=== PATIENT | female | born 1970 | race Caucasian/White ===

== ENCOUNTER 2021-08-21 09:26 | Emergency (ER) | payer BC, MEDICAID ==
[2021-08-21] MEDS ORDERED: Sodium Chloride 0.9% 1000 ML 1,000 ML IV STA (09:42)
[2021-08-21] MEDS ORDERED: Sodium Chloride 0.9% 1000 ML 1,000 ML ONE (09:53)
--- NOTE | 2021-08-21 10:11 | ERPHSYRPT ---
- History of Present Illness Time Seen by Provider: 08/21/21 09:40 Source: patient Exam Limitations: no limitations Patient Subjective Stated Complaint: Pt c/o of headache, head congestion, eye redness and swelling and blurred vision, fever, body aches, N&V and diarrhea si nce before Triage Nursing Assessment: Pt brought to the ER by her son, hypertensive, denies pain, eyes swollen and red and keeps them closed, diarrhea this AM but hasn't vomited since last week, pulses normal, no difficulties with strength, doesn't appear to be in any distress Physician History: Patient is a 50-year-old white female who presents with a complaint of being ill since before Monday. She says she has had fever and chills initially she has not been hydrating as well as she should she also has nausea vomiting diarrhea headache aching eyes are red and puffy. This started about a week after the initial onset. The eyes seem swollen to her and injected. Her headache she describes as fullness. She complains of cough nonproductive. She went to the clinic and had a COVID test which was negative she has multiple [facility] complaints. Timing/Duration: week(s) (2) Severity: moderate Modifying Factors: Improves With: nothing Associated Symptoms: nausea, vomiting, cough, chills, fever, headaches, loss of appetite, weakness Allergies/Adverse Reactions: Sulfa (Sulfonamide Antibiotics) Allergy (Verified 08/21/21 09:49) sulfamethoxazole [From Bactrim] Allergy (Verified 08/21/21 09:49) trimethoprim [From Bactrim] Allergy (Verified 08/21/21 09:49) Travel Risk - International Travel Have you traveled outside of the country in past 3 weeks: No - Coronavirus Screening Are you exhibiting any of the following symptoms?: Yes Symptoms: Fever, Vomiting/Diarrhea, Headaches/Body Aches/Fatigue - Vaccine Status Have you recieved a Covid-19 vaccination: No - Review of Systems Constitutional: Fever, Chills, Fatigue, Weakness Eyes: Eye Pain, Eye Redness, Tearing Ears, Nose, & Throat: Throat Pain Respiratory: Cough Cardiac: No Chest Pain, No Edema, No Syncope Abdominal/Gastrointestinal: Nausea, Vomiting, Diarrhea Genitourinary Symptoms: No Dysuria Musculoskeletal: Arthralgias, Myalgias Skin: No Rash Neurological: Headache Psychological: No Symptoms Endocrine: No Symptoms Hematologic/Lymphatic: No Symptoms Immunological/Allergic: No Symptoms - Past Medical History Pertinent Past Medical History: Yes Cardiac History: Hypertension - Past Surgical History Past Surgical History: Yes Female Surgical History: Tubal Ligation Other Surgical History: ablasion - Social History Smoking Status: Never smoker Exposure to second hand smoke: No Drug Use: none Patient Lives Alone: Yes - Female History Hx Now: No - Nursing Vital Signs Nursing Vital Signs: Initial Vital Signs Temperature 98.0 F 08/21/21 09:33 Pulse Rate 95 H 08/21/21 09:33 Blood Pressure 167/105 08/21/21 09:33 O2 Sat by Pulse Oximetry 97 08/21/21 09:33 Pain Scale Pain Intensity 0 - Physical Exam General Appearance: no apparent distress, alert Eye Exam: PERRL/EOMI, other (Sclera and conjunctive are injected.) Ears, Nose, Throat Exam: normal ENT inspection, TMs normal, dry mucous membranes, pharyngeal erythema Neck Exam: normal inspection, non-tender, supple, full range of motion Respiratory Exam: airway intact, rhonchi (Right lower lobe), No respiratory distress Cardiovascular Exam: regular rate/rhythm, normal heart sounds, normal peripheral pulses Gastrointestinal/Abdomen Exam: soft, normal bowel sounds, No tenderness, No mass Back Exam: normal inspection, normal range of motion, No CVA tenderness, No vertebral tenderness Extremity Exam: normal inspection, normal range of motion, pelvis stable Neurologic Exam: alert, oriented x 3, cooperative, normal mood/affect, nml cerebellar function, nml station & gait, sensation nml, No motor deficits Skin Exam: normal color, warm, dry, No rash Lymphatic Exam: No adenopathy SpO2 Interpretation: normal SpO2: 97 O2 Delivery: Room Air - Course Nursing assessment & vital signs reviewed: Yes EKG Interpreted by Me: RATE (91), Sinus Rhythm, NORMAL AXIS, NORMAL INTERVALS, NORMAL QRS - Radiology Exams Chest X-ray Interpretation: Interpreted by me, Negative Ordered Tests: Active Orders 24 hr Category Date Time Status Product Support Specialist STAT Care 08/21/21 09:43 Active EKG-ER Only STAT Care 08/21/21 09:42 Active IV Insertion STAT Care 08/21/21 09:42 Active CHEST 1 VIEW (PORTABLE) Stat Exams 08/21/21 09:43 Taken BLOOD CULTURE Stat Lab 08/21/21 10:09 Received CBC W DIFF Stat Lab 08/21/21 10:01 Completed CMP Stat Lab 08/21/21 10:01 Completed FLU A/B + COVID ANTIGEN Stat Lab 08/21/21 11:00 Completed LIPASE Stat Lab 08/21/21 10:01 Completed Lactic Acid Stat Lab 08/21/21 10:07 Completed Manual Differential NC Stat Lab 08/21/21 10:01 Completed [place] Screen Stat Lab 08/21/21 10:01 Completed TROPONIN Q3H Lab 08/21/21 10:01 Completed TROPONIN Q3H Lab 08/21/21 12:45 Ordered TROPONIN Q3H Lab 08/21/21 15:45 Ordered TROPONIN Q3H Lab 08/21/21 18:45 Ordered TROPONIN Q3H Lab 08/21/21 21:45 Ordered UA W/RFX CULTURE Stat Lab 08/21/21 10:56 Completed Medication Summary Discontinued Medications Generic Name Dose Route Start Last Admin Trade Name Freq PRN Reason Stop Dose Admin Sodium Chloride 1,000 mls @ 999 mls/hr 08/21/21 09:42 08/21/21 11:13 Sodium Chloride 0.9% 1000 Ml IV 08/21/21 10:42 Infused .Q1H1M STA Infusion Sodium Chloride Confirm 08/21/21 09:53 Sodium Chloride 0.9% 1000 Ml Administered 08/21/21 09:54 Dose 1,000 mls @ ud .ROUTE .STK-MED ONE Lab/Rad Data: Laboratory Result Diagrams 08/21/21 10:01 08/21/21 10:01 Laboratory Results 08/21/21 08/21/21 08/21/21 Range/Units 11:00 10:56 10:07 WBC (4.0-10.5) K/mm3 RBC (4.1-5.4) M/mm3 Hgb (12.0-16.0) gm/dl Hct (35-47) % MCV (78-100) fl MCH (26-32) pg MCHC (32-36) g/dl RDW (11.5-14.0) % Plt Count (150-450) K/mm3 MPV (7.5-11.0) fl Segmented Neutrophils (36.0-66.0) % Band Neutrophils (0.0-2.0) % Lymphocytes (Manual) (24-44) % Monocytes (Manual) (0.0-12.0) % Basophils (Manual) (0.0-1.0) % Platelet Estimate (NORMAL) RBC Morphology Sodium (137-145) mmol/L Potassium (3.5-5.1) mmol/L Chloride (98-107) mmol/L Carbon Dioxide (22-30) mmol/L Anion Gap (5-15) MEQ/L BUN (7-17) mg/dL Creatinine (0.52-1.04) mg/dL Estimated GFR ML/MIN Glucose (74-106) mg/dL Lactic Acid 1.3 (0.4-2.0) Calcium (8.4-10.2) mg/dL Total Bilirubin (0.2-1.3) mg/dL AST (14-36) U/L ALT (0-35) U/L Alkaline Phosphatase (38-126) U/L Troponin I (0.000-0.034) ng/mL Serum Total Protein (6.3-8.2) g/dL Albumin (3.5-5.0) g/dL Lipase (23-300) U/L Urinalys Dipstick Clnc MAIN LAB Urine Color YELLOW (YELLOW) Urine Appearance CLEAR (CLEAR) Urine pH 7.0 (5-6) Ur Specific [place] 1.015 (1.005-1.025) POC Urine Protein Conf NEGATIVE (Negative) Urine Ketones NEGATIVE (NEGATIVE) Urine Nitrite NEGATIVE (NEGATIVE) Urine Bilirubin NEGATIVE (NEGATIVE) Urine Urobilinogen 0.2 (0-1) mg/dL Urine Leukocytes NEGATIVE (NEGATIVE) Urine WBC (Auto) NONE (0-5) /HPF Urine RBC (Auto) NONE (0-2) /HPF U Epithel Cells (Auto) RARE (FEW) /HPF Urine Bacteria (Auto) NONE (NEGATIVE) /HPF Urine RBC NEGATIVE (0-5) Soto/ul Ur Culture Indicated? NO Urine Glucose NEGATIVE (NEGATIVE) mg/dL Monoscreen (Negative) Influenza Type A Ag NEGATIVE (NEGATIVE) Influenza Type B Ag NEGATIVE (NEGATIVE) SARS-CoV-2 Antigen NEGATIVE (NEGATIVE) Group A Strep Antibody (NEGATIVE) 08/21/21 08/21/21 08/21/21 Range/Units 10:01 10:01 10:01 WBC (4.0-10.5) K/mm3 RBC (4.1-5.4) M/mm3 Hgb (12.0-16.0) gm/dl Hct (35-47) % MCV (78-100) fl MCH (26-32) pg MCHC (32-36) g/dl RDW (11.5-14.0) % Plt Count (150-450) K/mm3 MPV (7.5-11.0) fl Segmented Neutrophils (36.0-66.0) % Band Neutrophils (0.0-2.0) % Lymphocytes (Manual) (24-44) % Monocytes (Manual) (0.0-12.0) % Basophils (Manual) (0.0-1.0) % Platelet Estimate (NORMAL) RBC Morphology Sodium (137-145) mmol/L Potassium (3.5-5.1) mmol/L Chloride (98-107) mmol/L Carbon Dioxide (22-30) mmol/L Anion Gap (5-15) MEQ/L BUN (7-17) mg/dL Creatinine (0.52-1.04) mg/dL Estimated GFR ML/MIN Glucose (74-106) mg/dL Lactic Acid (0.4-2.0) Calcium (8.4-10.2) mg/dL Total Bilirubin (0.2-1.3) mg/dL AST (14-36) U/L ALT (0-35) U/L Alkaline Phosphatase (38-126) U/L Troponin I < 0.012 (0.000-0.034) ng/mL Serum Total Protein (6.3-8.2) g/dL Albumin (3.5-5.0) g/dL Lipase 163 (23-300) U/L Urinalys Dipstick Clnc Urine Color (YELLOW) Urine Appearance (CLEAR) Urine pH (5-6) Ur Specific [place] (1.005-1.025) POC Urine Protein Conf (Negative) Urine Ketones (NEGATIVE) Urine Nitrite (NEGATIVE) Urine Bilirubin (NEGATIVE) Urine Urobilinogen (0-1) mg/dL Urine Leukocytes (NEGATIVE) Urine WBC (Auto) (0-5) /HPF Urine RBC (Auto) (0-2) /HPF U Epithel Cells (Auto) (FEW) /HPF Urine Bacteria (Auto) (NEGATIVE) /HPF Urine RBC (0-5) Soto/ul Ur Culture Indicated? Urine Glucose (NEGATIVE) mg/dL Monoscreen NEGATIVE (Negative) Influenza Type A Ag (NEGATIVE) Influenza Type B Ag (NEGATIVE) SARS-CoV-2 Antigen (NEGATIVE) Group A Strep Antibody (NEGATIVE) 08/21/21 08/21/21 08/21/21 Range/Units 10:01 10:01 10:01 WBC 10.5 (4.0-10.5) K/mm3 RBC 3.52 L (4.1-5.4) M/mm3 Hgb 10.0 L (12.0-16.0) gm/dl Hct 31.6 L (35-47) % MCV 89.8 (78-100) fl MCH 28.4 (26-32) pg MCHC 31.6 L (32-36) g/dl RDW 13.1 (11.5-14.0) % Plt Count 484 H (150-450) K/mm3 MPV 9.2 (7.5-11.0) fl Segmented Neutrophils 65 (36.0-66.0) % Band Neutrophils 2 (0.0-2.0) % Lymphocytes (Manual) 24 (24-44) % Monocytes (Manual) 8 (0.0-12.0) % Basophils (Manual) 1 (0.0-1.0) % Platelet Estimate NORMAL (NORMAL) RBC Morphology NORMAL Sodium 138 (137-145) mmol/L Potassium 4.3 (3.5-5.1) mmol/L Chloride 101 (98-107) mmol/L Carbon Dioxide 29 (22-30) mmol/L Anion Gap 12.2 (5-15) MEQ/L BUN 7 (7-17) mg/dL Creatinine 0.64 (0.52-1.04) mg/dL Estimated GFR > 60.0 ML/MIN Glucose 107 H (74-106) mg/dL Lactic Acid (0.4-2.0) Calcium 9.0 (8.4-10.2) mg/dL Total Bilirubin 0.50 (0.2-1.3) mg/dL AST 25 (14-36) U/L ALT 17 (0-35) U/L Alkaline Phosphatase 137 H (38-126) U/L Troponin I (0.000-0.034) ng/mL Serum Total Protein 7.5 (6.3-8.2) g/dL Albumin 3.7 (3.5-5.0) g/dL Lipase (23-300) U/L Urinalys Dipstick Clnc Urine Color (YELLOW) Urine Appearance (CLEAR) Urine pH (5-6) Ur Specific [place] (1.005-1.025) POC Urine Protein Conf (Negative) Urine Ketones (NEGATIVE) Urine Nitrite (NEGATIVE) Urine Bilirubin (NEGATIVE) Urine Urobilinogen (0-1) mg/dL Urine Leukocytes (NEGATIVE) Urine WBC (Auto) (0-5) /HPF Urine RBC (Auto) (0-2) /HPF U Epithel Cells (Auto) (FEW) /HPF Urine Bacteria (Auto) (NEGATIVE) /HPF Urine RBC (0-5) Soto/ul Ur Culture Indicated? Urine Glucose (NEGATIVE) mg/dL Monoscreen (Negative) Influenza Type A Ag (NEGATIVE) Influenza Type B Ag (NEGATIVE) SARS-CoV-2 Antigen (NEGATIVE) Group A Strep Antibody NOT DETECTED (NEGATIVE) - Progress Progress: unchanged - Departure Departure Disposition: Home Clinical Impression: Bronchitis Condition: Stable Critical Care Time: No Referrals: JENNIFER PARNELL NP [Primary Care Provider] - Follow up/PCP as directed Instructions: Acute Bronchitis, Adult (DC) Prescriptions: Ondansetron ODT 4 MG [Zofran Odt 4 mg] 4 mg PO Q6H PRN PRN #10 tablet PRN Reason: Nausea Cephalexin Mh 500 mg [Keflex 500 mg] 500 mg PO QID #40 cap Tobramycin Sulfate Ophth [Tobrex EYE DROPS 5 ML] 5 ml OP QID 7 Days #5 ml
[2021-08-21 10:24] LABS: Hematocrit 31.6 % (35-47); Mean Cell Volume 89.8 fl (78-100); Mean Corpuscular Hemoglobin 28.4 pg (26-32); Mean Corpuscular Hgb Concent. 31.6 g/dl (32-36); Mean Platelet Volume 9.2 fl (7.5-11.0); Platelet Count 484 K/mm3 (150-450); Red Blood Count 3.52 M/mm3 (4.1-5.4); Red Cell Distribution Width 13.1 % (11.5-14.0); White Blood Count 10.5 K/mm3 (4.0-10.5)
[2021-08-21 10:36] LABS: ALBUMIN 3.7 g/dL (3.5-5.0); ALKALINE PHOSPHATASE 137 U/L (38-126); ANION GAP 12.2 MEQ/L (5-15); BLOOD UREA NITROGEN 7 mg/dL (7-17); CHLORIDE 101 mmol/L (98-107); Carbon Dioxide 29 mmol/L (22-30); Creatinine 1 0.64 mg/dL (0.52-1.04); EST GLOMERULAR FILTRATION RATE > 60.0 ML/MIN; Glucose 107 mg/dL (74-106); Potassium 4.3 mmol/L (3.5-5.1); SGOT/AST 25 U/L (14-36); SGPT/ALT 17 U/L (0-35); SODIUM 138 mmol/L (137-145); Total Protein 7.5 g/dL (6.3-8.2)
[2021-08-21 11:03] LABS: Epithelial Cells RARE /HPF (FEW)
[2021-08-21 11:07] LABS: Appearance CLEAR (CLEAR); Bilirubin NEGATIVE (NEGATIVE); Dipstick done @ ? MAIN LAB; Glucose NEGATIVE (NEGATIVE); Ketones NEGATIVE (NEGATIVE); Nitrite NEGATIVE (NEGATIVE); Protein,Urine Dip NEGATIVE (Negative); RBC NEGATIVE Ery/ul (0-5); Specific Gravity 1.015 (1.005-1.025); Urine Cultured Indicated? NO; Urobilinogen 0.2 mg/dL (0-1)
[2021-08-21 12:13] LABS: BAND 2 % (0.0-2.0); Basophil 1 % (0.0-1.0); Lymphocytes 24 % (24-44); Monocyte 8 % (0.0-12.0); Platelet Estimate NORMAL (NORMAL); Total Cells Counted 100
[2021-08-21 12:31] VITALS: BP 135/82; PULSE 88; O2SAT 98
--- NOTE | 2021-08-21 19:30 | XRAY ---
Indication: Fever and cough. Comparison: None Portable chest demonstrates normal heart, lungs, and bony thorax.
== END 2021-08-21 12:53 | disposition home or self-care (01) ==
LOC: ED 09:26
DX: J40 Bronchitis, not specified as acute or chronic (principal); R50.9 Fever, unspecified; R11.2 Nausea with vomiting, unspecified; R19.7 Diarrhea, unspecified; R51.9 Headache, unspecified; R05.9 Cough, unspecified; I10 Essential (primary) hypertension
CPT/HCPCS: 36415; 71045; 80053; 81015; 83605; 83690; 84484; 85025; 86140; 86308; 87040; 87428; 87651; 93005; 93041; 96360; 99284